=== PATIENT | male | born 1990 | race Hispanic/Latino ===

== ENCOUNTER 2018-07-27 10:19 | Emergency (ER) | payer SELFPAY | END 2018-07-27 11:30 | disposition home or self-care (01) | LOC: EDH 10:19 | DX: K04.7 Periapical abscess without sinus (principal); Z87.891 Personal history of nicotine dependence ==

== ENCOUNTER 2021-03-02 10:21 | Emergency (ER) | payer OTHER ==
[2021-03-02] MEDS ORDERED: HYDROCODONE/ACETAMINOPHEN 7.5/325 MG TAB ONE (11:02)
== END 2021-03-02 11:17 | disposition home or self-care (01) ==
LOC: EDH 10:21
DX: K08.89 Other specified disorders of teeth and supporting structures (principal); Z72.0 Tobacco use